=== PATIENT | female | born 1990 | race African-American/Black ===

== ENCOUNTER 2017-04-27 10:06 | Emergency (ER) | payer OTHER ==
[~2017-04-27] VITALS: Ht 170.2 cm; Wt 111.0 kg
[2017-04-27] MEDS ORDERED: FIBEPOW PO (10:20)
[2017-04-27] MEDS ORDERED: NAPR220C PO (10:20)
[2017-04-27] MEDS ORDERED: DIAM500C PO (10:20)
[2017-04-27] MEDS ORDERED: ANTI2TAB (10:20)
[2017-04-27] MEDS ORDERED: EQL525SU4 (10:20)
[2017-04-27] MEDS ORDERED: TRINTAB3 PO (10:20)
[2017-04-27] MEDS ORDERED: ONDANSETRON 4MG/2ML VIAL (J2405) IV ONE (12:15)
[2017-04-27] MEDS ORDERED: MORPHINE 4 MG/ML 1ML SYRINGE IV ONE (12:15)
[2017-04-27 12:51] LABS: CONTROL LINE HCG INT CTR LINE PRESENT; MEAN CORPUSCULAR HEMOGLOBIN 28.3 pg (27.0-33.0); MEAN CORPUSCULAR HGB CONC 33.1 g/dl (32.0-36.5); MEAN CORPUSCULAR VOLUME 85.5 fl (80.0-96.0); RED CELL DISTRIBUTION WIDTH 13.8 % (11.5-14.5); WHITE BLOOD COUNT 7.6 K/mm3 (4.0-10.0)
--- NOTE | 2017-04-27 14:38 | REP ---
PELVIC ULTRASOUND: Real-time sonographic evaluation of the pelvis performed utilizing transabdominal and endovaginal technique. Study is limited due to patient body habitus. Bladder measures 2.5 x 2.2 x 6.6 cm. Uterus measures 6.9 x 2.7 x 5.3 cm. Endometrial thickness is 3 mm. Right ovary measures 2.9 x 1.9 x 1.2 cm and appears to contain a few tiny echogenic foci possibly a few microcalcifications. Left ovary measures 4.7 x 3.0 x 3.8 cm. A complex cyst is seen measuring 4.8 x 3.3 x 4.9 cm. Also in the left ovary is a hypoechoic solid or cystic nodule measuring 1.8 x 1.6 x 1.6 cm. There is trace free fluid. There is no evidence of ovarian torsion, with blood flow seen in each ovary with duplex Doppler evaluation. IMPRESSION: Complex cyst left ovary 4.9 cm in diameter. Smaller complex cyst or solid nodule left ovary 1.8 cm in maximum diameter. No torsion bilaterally. Trace free fluid. Recommend followup ultrasound in 2 months. Signed by Cristino Mercado MD 04/27/2017 08:20 P
[2017-04-27] MEDS ORDERED: CODE30TA3 PO (14:52)
[2017-04-27 15:00] VITALS: BP 139/68
--- NOTE | 2017-04-28 08:36 | ED PDOC ---
Post-Departure Follow-Up ft kristen [facility] and dr stone faxed formal report of pelvic us for fu. Shraddha Plata MD Apr 28, 2017 08:36
[2017-05-26] MEDS ORDERED: NORE5TAB PO (09:37)
[2017-05-26] MEDS ORDERED: ALBU17IN INH (09:39)
== END 2017-04-27 15:00 | disposition home or self-care (01) ==
LOC: M ED 11:22
DX: N94.6 Dysmenorrhea, unspecified (principal); N92.0 Excessive and frequent menstruation with regular cycle; Z87.42 Personal history of other diseases of the female genital tract; Z79.3 Long term (current) use of hormonal contraceptives; Z79.899 Other long term (current) drug therapy
CPT/HCPCS: 76830; 76856; 84703; 85027; 93976; 96374; 96375; 99283; J2405

== ENCOUNTER → 2017-06-02 | Day surgery (SDC) | payer OTHER ==
[~2017-06-02] VITALS: Ht 170.2 cm; Wt 108.9 kg
[~2017-06-02] MED LIST: ALBU17IN INH; ANTI2TAB; BUPIVACAINE HCL 0.25% 30 ML VIAL As Ordered ONE; CODE30TA3 PO; DIAM500C PO; EQL525SU4; FIBEPOW PO; GLYCOPYRROLATE INJ 0.2 MG/ML 2 ML VIAL As Ordered ONE; HYDROmorphone HCL 2 MG/ML 1ML VIAL (J1170) As Ordered ONE; KETOROLAC 60 MG/2 ML VIAL (J1885) As Ordered ONE; LIDOCAINE 1% SDV 5 ML VIAL SQ ONE; LIDOCAINE 2% INJ 100 MG/5 ML SDV (FOR ANES.) As Ordered ONE; LR 1,000 ML IV ONE; LR 1,000 ML IV SCH; MEPERIDINE INJ 25 MG/ML VIAL (J2175) IV PRN; METOCLOPRAMIDE INJ 10MG/2ML VIAL (J2765) IV PRN; MIDAZOLAM INJ 2 MG/2 ML VIAL (J2250) As Ordered ONE; NAPR220C PO; NORE5TAB PO; ONDANSETRON 4MG/2ML VIAL (J2405) As Ordered ONE; ONDANSETRON 4MG/2ML VIAL (J2405) IV PRN; PERCOCET 5MG/325MG TAB PO PRN; PROPOFOL 200 MG/20 ML VIAL As Ordered ONE; ROCURONIUM BROMIDE 50 MG/5 ML VIAL/SYRINGE As Ordered ONE; TRINTAB3 PO; dexameTHASONE 4 MG/ML 1ML VIAL (J1100) As Ordered ONE; fentaNYL 100 MCG/2 ML INJECTION (J3010) IV PRN; fentaNYL 250 MCG/5 ML INJECTION (J3010) As Ordered ONE
[2017-06-02 10:46] LABS: MEAN CORPUSCULAR HEMOGLOBIN 28.6 pg (27.0-33.0); MEAN CORPUSCULAR HGB CONC 32.9 g/dl (32.0-36.5); RED CELL DISTRIBUTION WIDTH 14.5 % (11.5-14.5); WHITE BLOOD COUNT 7.6 K/mm3 (4.0-10.0)
[2017-06-02 10:58] LABS: CONTROL LINE HCG INT CTR LINE PRESENT
[2017-06-02 17:15] VITALS: BP 145/77
== END ==
LOC: M SDC 09:59
PROVIDERS: ATTEND Obstetrics & Gynecology
DX: R10.2 Pelvic and perineal pain (principal); N80.9 Endometriosis, unspecified; N83.202 Unspecified ovarian cyst, left side; G93.2 Benign intracranial hypertension; J45.909 Unspecified asthma, uncomplicated; Z79.899 Other long term (current) drug therapy; Z79.3 Long term (current) use of hormonal contraceptives
CPT/HCPCS: 36415; 49320; 84703; 85027; 86850; 86900; 86901; J1100; J1170; J1885; J2250; J2405; J3010